=== PATIENT | male | born 1975 | race Caucasian/White ===

== ENCOUNTER 2022-08-21 18:18 | Emergency (ER) | payer MEDICAID ==
[~2022-08-21] VITALS: Ht 167.6 cm; Wt 81.6 kg
--- NOTE | 2022-08-21 18:37 | NUR ---
CALLED TO TRIAGE, NO ANSWER
--- NOTE | 2022-08-21 18:57 | NUR ---
CALLED TO TRIAGE, NO RESPONSE
[2022-08-21 21:30] VITALS: BP 140/81
--- NOTE | 2022-08-21 21:30 | NUR ---
CC OF TOOTH ACHE ON LEFT 3 UPPER MOLAR STARTED THIS AM. TOOK 2 VICODIN TABS, NO RELIEF. PLACED COMFORTABLY IN CHAIR. MD ARTEAGA
[2022-08-21] MEDS ORDERED: KETO10TA2 PO (21:44)
[2022-08-21] MEDS ORDERED: AMOX-430 PO (21:44)
[2022-08-21] MEDS ORDERED: KETOROLAC TROMETHAMINE INJ 60 MG/2 ML VIAL IM ONE (22:00)
== END 2022-08-21 21:54 | disposition home or self-care (01) ==
LOC: ER 18:23
DX: K08.89 Other specified disorders of teeth and supporting structures (principal); Z98.890 Other specified postprocedural states; Z60.2 Problems related to living alone